=== PATIENT | female | born 1990 | race Two or more races ===

== ENCOUNTER 2024-10-12 22:00 | Emergency (ER) | payer MEDICAID, OTHER ==
[~2024-10-12] VITALS: Ht 162.6 cm; Wt 63.5 kg
[2024-10-12] MEDS ORDERED: IBUPROFEN 600 MG TABLET ONE (22:28)
[2024-10-12] MEDS: IBUPROFEN 600 MG TABLET PO ONE (22:31)
[2024-10-12 22:39] VITALS: BP 154/71; TEMP 98.7; O2SAT 100
== END 2024-10-12 22:40 ==
LOC: ER 22:02
DX: S43.401A Unspecified sprain of right shoulder joint, initial encounter (principal); S60.211A Contusion of right wrist, initial encounter; Z60.2 Problems related to living alone; X58.XXXA Exposure to other specified factors, initial encounter; Y93.89 Activity, other specified; Y92.89 Other specified places as the place of occurrence of the external cause; Y99.8 Other external cause status